=== PATIENT | female | born 1980 | race Caucasian/White ===

== ENCOUNTER 2016-11-07 07:09 | Inpatient (IN) | payer OTHER ==
[~2016-11-07] VITALS: Ht 162.6 cm; Wt 83.4 kg
--- NOTE | ~2016-11-07 | OR ---
PATIENT'S NAME: XAVIER JAUREGUI [facility] AGE: 36 Y [address] ROOM: [address] [address] LOCATION: GOBS ADMIT DATE: 11/07/2016 OR/Procedure Report DISCHARGE DATE: FAMILY PHYSICIAN: PHYSICIAN, NO ATTENDING PHYSICIAN: Vivien Bruno SURGEON: Vivien Bruno MD TURNING SANDER OPERATOR: DATE OF PROCEDURE: 11/07/2016 This is a 36-year-old, 3, 1-0-1-1. She presents for labor induction at 40 weeks and 5 days gestation. She presents and she is 2-3 cm 50%, -2 station, and vertex. heart tones are reassuring. Blood pressure is good. Group B strep testing is positive, so IV antibiotics will be started. Cytotec 25 mcg was placed intravaginally. She had minimal progress with this, so she was started with Pitocin 4 hours later. She progressed to 4 cm and requested an epidural. Everything was going well. She had an epidural placed following the epidural, she was 5-6 cm. I performed assisted rupture of membranes with clear fluid return. She progressed on to complete and pushing for about 25 minutes delivered spontaneously. She delivered the vertex in the straight OP position with three nuchal cord. Shoulders and body are easily delivered after the nuchal cords were reduced. Baby girl was placed on maternal abdomen. Her cord was doubly clamped and cut. A two vessel cord was noted and was noted prenatally. The placenta delivered spontaneously and intact. Cervix and vagina are intact. Blood loss was 300 mL. The second- degree laceration was repaired in the usual fashion with 2-0 chromic. The patient tolerated the procedure well. VIVIEN BRUNO MD KHP/modl /[id number] d: 11/08/16 0130 t: 11/14/16 1301, OPERATIVE SUMMARY
[~2016-11-07 07:09] MED LIST: ADVAIR 250-501 EACH INH; PRENATAL 1+1)(P1 TAB PO; VITAMIN D-40400 UNIT PO
[2016-11-07 08:13] LABS: BASOPHIL # 0.1 K/uL (0.0-0.2); BASOPHIL % 0.6 %; EOSINOPHIL # 0.5 K/uL (0.0-0.5); EOSINOPHIL % 5.1 %; HEMATOCRIT 35.6 % (33.0-46.0); HEMOGLOBIN 12.1 g/dL (11.0-15.0); IMMATURE GRANULOCYTE # 0.1 K/uL (0.0-0.3); IMMATURE GRANULOCYTE % 0.6 %; LYMPHOCYTE # 1.7 K/uL (0.8-4.0); LYMPHOCYTE % 18.1 %; MCH 28.8 pg (27.0-34.0); MCV 84.8 fl (83.0-98.0); MONOCYTE # 0.6 K/uL (0.0-1.0); MONOCYTE % 6.9 %; MPV 10.3 fl (9.4-12.4); NEUTROPHIL # (ANC) 6.4 K/uL (1.8-7.8); NEUTROPHIL % 68.7 %; NRBC % 0 /100WBC (0-0.00); PLATELET COUNT 178 K/uL (150-450); RDW-CV 13.4 % (11.9-14.6); WBC 9.3 K/uL (4.0-11.0)
--- NOTE | 2016-11-07 17:50 | NUR ---
Last VS: T:98.4 P:78 R: 16 BP: 149/85 Pain rating: . Last pain med: Epidural Medicated at: Effective: Yes FHT: 120 Dilatation: 4 Effacement %: 50 Station: -1 Significant event: *.cytotec x1. pitocin started around 1300. running at 15mu/min at 1730. cardozo cath and epidural in place. Pen G for GBS positive. next due at 1999. (4th dose)
[2016-11-08 05:01] LABS: BASOPHIL # 0.1 K/uL (0.0-0.2); BASOPHIL % 0.5 %; EOSINOPHIL # 0.3 K/uL (0.0-0.5); EOSINOPHIL % 2.7 %; HEMATOCRIT 29.8 % (33.0-46.0); HEMOGLOBIN 10.1 g/dL (11.0-15.0); IMMATURE GRANULOCYTE # 0.1 K/uL (0.0-0.3); IMMATURE GRANULOCYTE % 0.6 %; LYMPHOCYTE # 1.5 K/uL (0.8-4.0); LYMPHOCYTE % 14.1 %; MCH 28.6 pg (27.0-34.0); MCHC 33.9 gm/dL (32.0-36.5); MCV 84.4 fl (83.0-98.0); MONOCYTE # 0.8 K/uL (0.0-1.0); MONOCYTE % 7.2 %; MPV 10.1 fl (9.4-12.4); NEUTROPHIL # (ANC) 8.1 K/uL (1.8-7.8); NEUTROPHIL % 74.9 %; NRBC % 0 /100WBC (0-0.00); RBC 3.53 M/uL (3.50-5.50); RDW-CV 13.4 % (11.9-14.6); WBC 10.8 K/uL (4.0-11.0)
[2016-11-08 05:06] LABS: PLATELET COUNT 137 K/uL (150-450)
--- NOTE | 2016-11-08 05:12 | NUR ---
VSS. VOIDING WITHOUT DIFFICULTY. FUNDUS FIRM, -1, SMALL FLOW. LAST HAD 2 PERCOCET AT 0448. SCREEN ORDERED.
--- NOTE | 2016-11-08 12:05 | NUR ---
Introduced self/role to patient, her and a few family members present. Gave her the handout for Post depression and the list of resources in [place]. They have a older daughter, have all their needed baby supplies. No questions or concerns.
--- NOTE | 2016-11-08 17:02 | NUR ---
Last VS: T:98.4 P:63 R: 16 BP: 118/62 Pain rating: . Last pain med: Percocet Medicated at: 1419 Effective: Yes Breasts: SOFT, Nipples: NO PROBLEM Fundus:, FIRM EVEN, Lochia: SM, Epis/Perineum: TENDER, , Voiding well: YES Significant event: *.NO COMPLAINTS. PLANNING HOME TOMORROW LATE AFTERNOON. RHOGAM GIVEN 11/08/16.
[2016-11-09] MEDS ORDERED: MOTRIN800 MG PO (11:26)
[2016-11-09] MEDS ORDERED: PERCOCET 5-3251 EACH PO (11:26)
--- NOTE | 2016-11-09 16:56 | NUR ---
Significant Event: Follow up: kvng Pablo @ 1900, GBS+, needs to stay 48 hrs. Papers typed, needs instructions,& VS. Medicated with freda @ 5005....Requested to visit with Saray about , her card given, & i called & left a msg on her cell phone.
== END 2016-11-09 19:16 | disposition disaster alternative care site (69) | DRG 775 ==
LOC: GOBM 07:09 → GOBS 07:09 → GOBM 07:10 → GOBS 07:10
PROVIDERS: ADMIT Obstetrics & Gynecology
PROC: 3E0P7GC Introduction of Other Therapeutic Substance into Female Reproductive, Via Natural or Artificial Opening (ICD-10-PCS; principal; 2016-11-07)
PROC: 10E0XZZ Delivery of Products of Conception, External Approach (ICD-10-PCS; principal; 2016-11-07)
PROC: 3E033VJ Introduction of Other Hormone into Peripheral Vein, Percutaneous Approach (ICD-10-PCS; principal; 2016-11-07)
PROC: 10907ZC Drainage of Amniotic Fluid, Therapeutic from Products of Conception, Via Natural or Artificial Opening (ICD-10-PCS; principal; 2016-11-07)
DX: O70.1 Second degree perineal laceration during delivery (principal); O99.824 Streptococcus B carrier state complicating childbirth; O69.81X0 Labor and delivery complicated by cord around neck, without compression, not applicable or unspecified; Z3A.40 40 weeks gestation of pregnancy; Z37.0 Single live birth
CPT/HCPCS: J2001; J2540; J2590; J2791; J3010; J7120